=== PATIENT | female | born 1965 | race Caucasian/White ===

== ENCOUNTER 2016-05-06 19:51 | Emergency (ER) | payer BC ==
--- NOTE | 2016-05-06 19:59 | PDOC ---
[id number] [id number] - General Chief Complaint: Palpitations Stated Complaint: PALPITATIONS/COUGH Time Seen by Provider: 05/06/16 19:58 - History of Present Illness Initial Comments: 05/06/16 20:43 Patient is a 51 year old female with significant medical hx of hypothyroidism, HLD, and PFO who is presenting to the ED with dry cough, palpitations and chest pain. The patient reports experiencing heart palpitations during dinner this evening. The patient states she was feeling somewhat short of breath as well and decided to use a puff of her inhaler that she normally uses for exercise. The patient also is complaining of dry cough with associated chest tightness. She states that she's been feeling generally unwell the past few days with some weakness. She went to the ED at [facility] before coming here, where her heart rate was found to be at 130 BPM. Denies fever, chills, nausea, vomiting, diarrhea, diaphoresis, and lower extremity edema. Internal Medicine Nurse: Enrrique Aleman MD FHx: Father in 50s of heart disease (PaxtonAna) Past History <PaxtonAna - Last Filed: 05/06/16 21:02> - Past Medical History Anemia: Yes (pernicious anemia) Asthma: No Cancer: No Cardiac Disorders: Yes (heart murmur,hx palpitations, pfo) CVA: No COPD: No CHF: No Dementia: No Diabetes: No GI Disorders: No Disorders: No HTN: No Hypercholesterolemia: No Liver Disease: No Seizures: No Thyroid Disease: Yes - Surgical History Abdominal Surgery: No Appendectomy: No Cardiac Surgery: No Cholecystectomy: No Lung Surgery: No Neurologic Surgery: No Orthopedic Surgery: No - Reproductive History Cervical CA: No Dysfunctional Uterine Bleeding: No Ectopic : No Endometrial CA: No Polycystic Ovaries: No Tubal Ligation: No - Psycho/Social/Smoking Cessation Hx Anxiety: No Suicidal Ideation: No Smoking History: Never smoked Have you smoked in the past 12 months: No Number of Cigarettes Smoked Daily: 12 Hx Alcohol Use: No Drug/Substance Use Hx: No Substance Use Type: None Hx Substance Use Treatment: No <Pat Garcia - Last Filed: 05/07/16 06:43> - Past Medical History Allergies/Adverse Reactions: Allergies Allergy/AdvReac Type Severity Reaction Status Date / Time oxycodone Allergy Rash Verified 05/06/16 19:52 NUTS Allergy Intermediate Uncoded 05/06/16 19:52 Home Medications: Ambulatory Orders Aspirin [Aspirin EC] 81 mg PO HS 09/08/14 Hydrochlorothiazide [Hctz -] 12.5 mg PO DAILY 09/08/14 Levothyroxine [Synthroid -] 112 mcg PO DAILY 09/08/14 Metoprolol Succinate [Toprol Xl -] 25 mg PO HS 09/08/14 Metformin HCl [Metformin HCl ER] 1,000 mg PO DAILY 10/11/14 Cardiac Specific PMH - Complaint Specific PMHX Pacemaker: No <Pat Garcia - Last Filed: 05/07/16 06:43> Review of Systems <Ana Matta - Last Filed: 05/06/16 21:02> <Pat Garcia - Last Filed: 05/07/16 06:43> - Review of Systems Comments:: 05/06/16 20:51 CONSTITUTIONAL: Present: generalized weakness Absent: fever, chills, diaphoresis, malaise, loss of appetite HEENT: Absent: rhinorrhea, nasal congestion, throat pain, throat swelling, difficulty swallowing, mouth swelling, ear pain, eye pain, visual changes CARDIOVASCULAR: Present: chest tightness, palpitations Absent: syncope, irregular heart rate, lightheadedness, peripheral edema RESPIRATORY: Present: dry cough, shortness of breath Absent: dyspnea with exertion, orthopnea, wheezing, stridor, hemoptysis GASTROINTESTINAL: Absent: abdominal pain, abdominal distension, nausea, vomiting, diarrhea, constipation, melena, hematochezia GENITOURINARY: Absent: dysuria, frequency, urgency, hesitancy, hematuria, flank pain, genital pain MUSCULOSKELETAL: Absent: myalgia, arthralgia, joint swelling SKIN: Absent: rash, itching, pallor HEMATOLOGIC/IMMUNOLOGIC: Absent: easy bleeding, easy bruising, lymphadenopathy, frequent infections ENDOCRINE: Absent: unexplained weight gain, unexplained weight loss, heat intolerance, cold intolerance NEUROLOGIC: Absent: headache, focal weakness or paresthesia, dizziness, unsteady gait, seizure, mental status changes, bladder or bowel incontinence. PSYCHIATRIC: Absent: anxiety, depression, suicidal or homicidal ideation, hallucinations (Ana Matta) *Physical Exam <Ana Matta - Last Filed: 05/06/16 21:02> <Pat Garcia - Last Filed: 05/07/16 06:43> - Vital Signs Last Vital Signs Temp Pulse Resp BP Pulse Ox 97.9 F 90 16 118/73 100 05/06/16 20:01 05/06/16 20:01 05/06/16 20:01 05/06/16 20:01 05/06/16 20:01 - Physical Exam Comments: 05/06/16 20:52 GENERAL: The patient is awake, alert, and fully oriented, in no acute distress. HEAD: Normal with no signs of trauma. EYES: Pupils equal, round and reactive to light, extraocular movements intact, sclera anicteric, conjunctiva clear with no pallor. ENT: Ears normal, nares patent, oropharynx clear without exudates. Moist mucous membranes. NECK: Normal range of motion, supple without lymphadenopathy, JVD, or masses. LUNGS: Breath sounds equal, clear to auscultation bilaterally. No wheeze/ crackles. HEART: Regular rate and rhythm, normal S1 and S2 without murmur or rub. ABDOMEN: Soft/nontender/nondistended. BS wnl. No guarding or rebound. No palpable masses. No hepatosplenomegaly. EXTREMITIES: Normal range of motion, no edema. No clubbing or cyanosis. No cords, erythema, or tenderness. NEUROLOGICAL: Cranial nerves II through XII grossly intact. Normal speech, normal gait. PSYCH: Normal mood, normal affect. SKIN: Warm, Dry, normal turgor, no rashes or lesions noted. (Ana Matta) Heart Score/ECG Review <Ana Matta - Last Filed: 05/06/16 21:02> <Pat Garcia - Last Filed: 05/07/16 06:43> #1 05/06/16 20:55 Normal sinus rhythm at [address] abnormality Abnormal ECG (Ana Matta) ED Treatment Course - LABORATORY CBC & Chemistry Diagram: 05/06/16 20:50 05/06/16 20:50 <Ana Matta - Last Filed: 05/06/16 21:02> - LABORATORY CBC & Chemistry Diagram: 05/06/16 20:50 05/06/16 20:50 <Pat Garcia - Last Filed: 05/07/16 06:43> - ADDITIONAL ORDERS Additional order review: Laboratory Results 05/06/16 05/06/16 05/06/16 20:50 20:50 20:40 Sodium 134 L Potassium 3.4 L Chloride 107 Carbon Dioxide 25 Anion Gap 2 L BUN 10 Creatinine 0.6 Creat Clearance w eGFR > 60 Random Glucose 124 H Calcium 8.9 Total Bilirubin 0.3 D AST 22 ALT 17 Alkaline Phosphatase 61 Creatine Kinase 79 Troponin I < 0.03 L Total Protein 7.1 Albumin 4.3 Urine Color Yellow Urine Appearance Clear Urine pH 5.0 D Ur Specific [place] 1.015 Urine Protein Negative Urine Glucose (UA) Negative Urine Ketones Negative Urine Blood Trace-intact Urine Nitrite Negative Urine Bilirubin Negative Urine Urobilinogen 0.2 e.u/dl Ur Leukocyte Esterase Negative 05/06/16 20:50 RBC 4.77 MCV 84.6 MCHC 32.6 RDW 12.2 MPV 8.7 Neutrophils % 82.1 D Lymphocytes % 13.2 D Monocytes % 3.3 L Eosinophils % 0.8 D Basophils % 0.6 - Medications Given in the ED: ED Medications Discontinued Medications Generic Name Dose Route Start Last Admin Trade Name Freq PRN Reason Stop Dose Admin Potassium Chloride 20 meq 05/06/16 21:35 05/06/16 21:38 K-Dur - PO 05/06/16 21:36 20 meq ONCE ONE Administration Progress Note <Ana Matta - Last Filed: 05/06/16 21:02> <Pat Garcia - Last Filed: 05/07/16 06:43> - Progress Note Progress Note: Documentation has been prepared under my direction and personally reviewed by me in its entirety. I attest that this documented accurately reflects all work, treatment, procedures and medical decision making performed by me. (Pat Garcia) Medical Decision Making <Ana Matta - Last Filed: 05/06/16 21:02> <Pat Garcia - Last Filed: 05/07/16 06:43> - Medical Decision Making As noted above, this 51-year-old woman presents with an episode of this sensation of palpitations a few hours prior to presentation. She describes the sensation as being a rapid heartbeat; states that she cannot tell whether the heartbeat is irregular. She no longer had the sensation of palpitations when she arrived in the ER. No other associated symptoms during the episode. She has had a mild nonproductive cough and some mild constitutional symptoms for the last few days (subjective fever; mild weakness). Exam, as noted, shows no abnormality. 12-lead electrocardiogram shows normal sinus rhythm at 81 bpm; no ST or T-wave abnormalities evident. Cedar, intervals and wave forms are normal. There is no previous EKG tracing available for comparison. Because the patient has risk factors for coronary artery disease(borderline hypertension, hyperlipidemia, family history of coronary artery disease) cardiac enzymes as well as CBC and chemistry profile will be evaluated. Patient continued to be comfortable without palpitations or other symptoms while awaiting results of lab evaluation. CBC is normal; chemistry profile shows minimal hypokalemia(3.4 mEq per deciliter ) as well as minimal hyponatremia(134 mEq per deciliter). Remainder of the chemistry is essentially normal. Cardiac enzymes are not elevated. Results discussed with the patient. Since the dose of hydrochlorothiazide is so low (12.5 mg), and the patient takes the medication every other day, the patient suggested that she stop taking this until she sees her dumping machine operator ( Dr. Aleman) with whom she already has appointment scheduled within a week. This was agreed to. Meanwhile, the patient will have 20 milliequivalents of K-Dur now and continue to eat bananas/drink orange juice which she normally does while she is taking the hydrochlorothiazide. She should return to the ER if she has prolonged palpitations or experiences chest pain/shortness of breath. Furthermore, if her cough worsens or she has high fever, she should also return to the emergency room (Pat Garcia) *DC/Admit/Observation/Transfer <Ana Matta - Last Filed: 05/06/16 21:02> <Pat Garcia - Last Filed: 05/07/16 06:43> Diagnosis at time of Disposition: History of palpitations Acute bronchitis Qualifiers: Bronchitis organism: unspecified organism Qualified Code(s): J20.9 - Acute bronchitis, unspecified - Discharge Dispostion Disposition: HOME Condition at time of disposition: Stable - Referrals Referrals: Enrrique Aleman MD [Staff Physician] - - Patient Instructions Printed Discharge Instructions: DI for Palpitations Additional Instructions: hold hydrochlorothiazide as discussed continue other medications as prescribed return to ER if you have recurrent palpitations or shortness of breath return to ER if you develop fever/severe cough followup with Dr Aleman this week as scheduled - Attestations Scribe Attestion: 05/06/16 20:53 Documentation prepared by Ana Matta, acting as medical detailist for Pat Garcia MD. (Ana Matta)
[2016-05-06 20:05] VITALS: BP 118/73; PULSE 90; TEMP 97.9; BMI 27.4
[2016-05-06 20:52] LABS: URINE APPEARANCE Clear; URINE BILIRUBIN Negative (NEGATIVE); URINE BLOOD Trace-intact (NEGATIVE); URINE GLUCOSE (UA) Negative (NEGATIVE); URINE KETONE Negative (NEGATIVE); URINE LEUK ESTERASE Negative (NEGATIVE); URINE NITRITE Negative (NEGATIVE); URINE PROTEIN Negative (NEGATIVE); URINE UROBILINOGEN 0.2 E.U/dl (0.2-1.0)
[2016-05-06 20:58] LABS: URINE COLOR YELLOW
[2016-05-06 21:05] LABS: BASOPHIL 0.6 % (0-2.0); EOSINOPHIL 0.8 % (0-4.5); MCH 27.6 pg (25.7-33.7); MCHC 32.6 g/dl (32.0-36.0); MEAN CELL VOLUME 84.6 fl (80-96); MEAN PLT VOLUME 8.7 fl (7.5-11.1); NEUTROPHILS 82.1 % (42.8-82.8); PLATELET COUNT 239 K/MM3 (134-434); RDW 12.2 % (11.6-15.6); WHITE BLOOD COUNT 7.9 K/mm3 (4.0-10.0)
[2016-05-06 21:14] LABS: ALBUMIN 4.3 g/dl (3.5-5.0); ALK PHOS 61 U/L (32-92); ANION GAP 2 (8-16); BILIRUBIN,TOTAL 0.3 mg/dl (0.2-1.0); CALCIUM 8.9 mg/dl (8.4-10.2); CO2 25 mmol/L (22-28); CREATININE 0.6 mg/dl (0.6-1.3); GLUCOSE,RANDOM 124 mg/dl (74-106); SGOT/AST 22 U/L (10-42); SGPT/ALT 17 U/L (10-40); TOT PROT 7.1 g/dl (6.4-8.3)
[2016-05-06 21:15] LABS: CPK(DFH) 79 IU/L (26-140)
[2016-05-06 21:27] LABS: TROPONIN I (DFP) < 0.03 ng/ml (0.03-0.50)
[2016-05-06] MEDS ORDERED: POTASSIUM CHLORIDE TABS 20 MEQ TABLET.ER (FP) PO ONE ×2 (21:35)
--- NOTE | 2016-05-08 15:30 | EKG ---
Test Reason : Blood Pressure : / mmHG Vent. Rate : 081 BPM Atrial Rate : 081 BPM P-R Int : 138 ms QRS Dur : 088 ms QT Int : 380 ms P-R-T Axes : 053 045 041 degrees QTc Int : 441 ms NORMAL SINUS RHYTHM NONSPECIFIC ST ABNORMALITY ABNORMAL ECG WHEN COMPARED WITH ECG OF 06-MAY-2016 18:47, [place] INTERVAL HAS INCREASED NONSPECIFIC T WAVE ABNORMALITY NO LONGER EVIDENT IN LATERAL LEADS QT HAS SHORTENED Confirmed by LELE ALCANTARA, DESTINY ([id number]) on 05/08/2016 3:30:15 PM Referred By: CHA Confirmed By:DESTINY ROYAL MD
== END 2016-05-06 21:43 | disposition home or self-care (01) ==
LOC: FER 19:51
DX: J20.9 Acute bronchitis, unspecified (principal); R00.2 Palpitations; D51.0 Vitamin B12 deficiency anemia due to intrinsic factor deficiency; R01.1 Cardiac murmur, unspecified; E07.9 Disorder of thyroid, unspecified; F17.210 Nicotine dependence, cigarettes, uncomplicated
CPT/HCPCS: 36415; 80053; 81003; 82550; 84484; 85025; 93005; 99282-25

== ENCOUNTER 2016-08-12 10:00 | Emergency (ER) | payer BC ==
[2016-08-12 10:13] VITALS: BMI 27.4
[2016-08-12] MEDS ORDERED: KETOROLAC TROMETHAMINE 30 MG/1 ML VIAL IVPUSH ONE (10:33)
[2016-08-12] MEDS ORDERED: ONDANSETRON 4 MG/2 ML VIAL IVPB ONE (10:33)
--- NOTE | 2016-08-12 10:35 | PDOC ---
History of Present Illness - General History Source: Patient Exam Limitations: No Limitations - History of Present Illness Initial Comments: 08/12/16 11:35 The patient is a 51 year old female, with a significant past medical history of kidney stones and hypothyroidism, who presents to the emergency department with flank pain. She describes her flank pain as localized in the right side, ranging from mild to moderate, without radiation or modifying factors. She states that this pain is similar to her previous kidney stone pain. The patient also reports burning upon urination associated with her chief complaints. The patient saw her urologist Dr. Mora today, who reported that she had right sided hydropnephrosis and sent her for evaluation of renal colic. The patient denies chest pain, shortness of breath, headache and dizziness. Denies fever, chills, vomit, diarrhea and constipation. Denies frequency, urgency and hematuria. Allergies: None Past surgical history: None reported Social history: No alcohol, tobacco or drug use reported PMD - Dr. Mauro Narvaez Urologist - Dr. Mora <Michi Brown - Last Filed: 08/12/16 12:26> - General History Source: Patient Exam Limitations: No Limitations <Luis Wilder - Last Filed: 08/12/16 14:47> - General Chief Complaint: Pain, Acute Stated Complaint: FLANK PAIN,HX OF KIDNEY STONES. Time Seen by Provider: 08/12/16 10:15 Past History <Michi Brown - Last Filed: 08/12/16 12:26> - Past Medical History Anemia: Yes (pernicious anemia) Asthma: No Cancer: No Cardiac Disorders: Yes (heart murmur,hx palpitations, pfo) CVA: No COPD: No CHF: No Dementia: No Diabetes: No GI Disorders: No Disorders: No HTN: No Hypercholesterolemia: No Kidney Stones: Yes (X1) Liver Disease: No Seizures: No Thyroid Disease: Yes - Surgical History Abdominal Surgery: No Appendectomy: No Cardiac Surgery: No Cholecystectomy: No Lung Surgery: No Neurologic Surgery: No Orthopedic Surgery: No - Reproductive History Cervical CA: No Dysfunctional Uterine Bleeding: No Ectopic : No Endometrial CA: No Polycystic Ovaries: No Tubal Ligation: No - Psycho/Social/Smoking Cessation Hx Anxiety: No Suicidal Ideation: No Smoking History: Never smoked Have you smoked in the past 12 months: No Number of Cigarettes Smoked Daily: 12 Hx Alcohol Use: No Drug/Substance Use Hx: No Substance Use Type: None Hx Substance Use Treatment: No <Luis Wilder - Last Filed: 08/12/16 14:47> - Past Medical History Allergies/Adverse Reactions: Allergies Allergy/AdvReac Type Severity Reaction Status Date / Time oxycodone Allergy Rash Verified 08/12/16 10:10 NUTS Allergy Intermediate Uncoded 08/12/16 10:10 Home Medications: Ambulatory Orders Aspirin [Aspirin EC] 81 mg PO HS 09/08/14 Hydrochlorothiazide [Hctz -] 12.5 mg PO PRN 09/08/14 Levothyroxine [Synthroid -] 112 mcg PO DAILY 09/08/14 Metoprolol Succinate [Toprol Xl -] 25 mg PO HS 09/08/14 Metformin HCl [Metformin HCl ER] 1,000 mg PO DAILY 10/11/14 Diphenhydramine HCl [Benadryl -] 25 mg PO Q6H PRN #28 capsule 08/12/16 Estrogen,Con/M-Progest Acet [Prempro 0.625-2.5 mg Tablet] 1 each PO HS 08/12/16 Hydrocodone/Acetaminophen [Vicodin 5-300 mg Tablet] 1 each PO Q6H PRN #15 tablet MDD 4 08/12/16 Montelukast Na [Singulair -] 10 mg PO HS 08/12/16 Pantoprazole Sodium [Protonix] 40 mg PO DAILY 08/12/16 Tamsulosin HCl [Flomax] 0.4 mg PO DAILY #14 cap.er.24h 08/12/16 Review of Systems - Review of Systems Able to Perform ROS?: Yes Comments:: 08/12/16 11:32 GENERAL/CONSTITUTIONAL: No fever or chills. No weakness. HEAD, EYES, EARS, NOSE AND THROAT: No change in vision. No ear pain or discharge. No sore throat. CARDIOVASCULAR: No chest pain or shortness of breath RESPIRATORY: No cough, wheezing, or hemoptysis. GASTROINTESTINAL: +Nausea. No vomiting, diarrhea or constipation. GENITOURINARY: +Right sided flank pain and dysuria. No frequency, or change in urination. MUSCULOSKELETAL: No joint or muscle swelling or pain. No neck or back pain. SKIN: No rash NEUROLOGIC: No headache, vertigo, loss of consciousness, or change in strength/ sensation. ENDOCRINE: No increased thirst. No abnormal weight change HEMATOLOGIC/LYMPHATIC: No anemia, easy bleeding, or history of blood clots. ALLERGIC/IMMUNOLOGIC: No hives or skin allergy. <Michi Brown - Last Filed: 08/12/16 12:26> *Physical Exam - Vital Signs Last Vital Signs Temp Pulse Resp BP Pulse Ox 98 F 81 16 147/88 99 08/12/16 10:10 08/12/16 10:10 08/12/16 10:10 08/12/16 10:10 08/12/16 10:10 - Physical Exam Comments: 08/12/16 11:32 GENERAL: (+) Uncomfortable appearing. Awake, alert, and fully oriented. HEAD: No signs of trauma, normocephalic, atraumatic EYES: PERRLA, EOMI, sclera anicteric, conjunctiva clear ENT: Auricles normal inspection, hearing grossly normal, nares patent, oropharynx clear without exudates. Moist mucosa NECK: Normal ROM, supple, no lymphadenopathy, JVD, or masses LUNGS: No distress, speaks full sentences, clear to auscultation bilaterally HEART: Regular rate and rhythm, normal S1 and S2, no murmurs, rubs or gallops, peripheral pulses normal and equal bilaterally. ABDOMEN: Soft, nontender, normoactive bowel sounds. No guarding, no rebound. No masses BACK: (+) Right sided CVA tenderness. EXTREMITIES: Normal inspection, Normal range of motion, no edema. No clubbing or cyanosis. NEUROLOGICAL: Cranial nerves II through XII grossly intact. Normal speech, normal gait, no focal sensorimotor deficits SKIN: Warm, Dry, normal turgor, no rashes or lesions noted. <StephanieMichiasya Mccoy - Last Filed: 08/12/16 12:26> - Vital Signs Last Vital Signs Temp Pulse Resp BP Pulse Ox 98 F 81 16 147/88 99 08/12/16 10:10 08/12/16 10:10 08/12/16 10:10 08/12/16 10:10 08/12/16 10:10 <Luis Wilder - Last Filed: 08/12/16 14:47> ED Treatment Course - LABORATORY CBC & Chemistry Diagram: 08/12/16 11:10 08/12/16 11:10 - RADIOLOGY Radiograph Interpretation: 08/12/16 12:26 CT abdomen and pelvis without contrast Reviewed by: Dr. Priyank Christianson Impression: 4 mm right ureterovesical junction calculus is seen with resultant hydronephrosis which is probably mild to moderate. Small nonobstructing bilateral renal calculi are visualized. - Medications Given in the ED: ED Medications Discontinued Medications Generic Name Dose Route Start Last Admin Trade Name Heidy PRN Reason Stop Dose Admin Ketorolac Tromethamine 30 mg 08/12/16 10:33 08/12/16 10:45 Toradol Injection - IVPUSH 08/12/16 10:34 30 mg ONCE ONE Administration Ondansetron HCl 4 mg 08/12/16 10:33 08/12/16 10:45 Zofran Injection IVPB 08/12/16 10:34 4 mg ONCE ONE Administration <Michi Brown - Last Filed: 08/12/16 12:26> - LABORATORY CBC & Chemistry Diagram: 08/12/16 11:10 08/12/16 11:10 - RADIOLOGY Radiology Studies Ordered: Category Date Time Status SPIRAL- RENAL-STONE CT [CT] Stat CT Scan 08/12/16 10:33 Ordered <Luis Wilder - Last Filed: 08/12/16 14:47> Medical Decision Making - Medical Decision Making 08/12/16 10:51 A portion of this note was documented by scribe services under my direction. I have reviewed the details of the note, within reason, and agree with the documentation with the following case summary and management plan written by me. Patient treated in the ED. Nursing notes are reviewed and incorporated into the medical decision-making. Vital signs reviewed. Peripheral IV access obtained by the nurse, laboratory studies are drawn and sent, reviewed and interpreted by myself. Vital Signs Temp Pulse Resp BP Pulse Ox 98 F 81 16 147/88 99 08/12/16 10:10 08/12/16 10:10 08/12/16 10:10 08/12/16 10:10 08/12/16 10:10 51 year old female with past medical history of kidney stones, hypothyroidism p/ w R flank pain. Overnight, pt developed R flank pain like her previous kidney stones. Stated that pain is colicky and constant. Has nausea but no vomiting. Reports dysuria but denies fevers. Pt went and saw Dr. Mora today and noted R sided hydronephrosis and sent pt to ED for renal colic management. I agree with plan. Spiral CT. Labs, UA. Pt declines narcotics. Will give toradol , zofran and reassess. 08/12/16 14:40 CT reviewed. 4 mm right UVJ stone with resultant hydronephrosis which is probably mild to moderate. CBC, BMP 08/12/16 11:10 08/12/16 11:10 CMP Sodium 141 mmol/L (136-145) 08/12/16 11:10 Potassium 4.1 mmol/L (3.5-5.1) 08/12/16 11:10 Chloride 106 mmol/L (98-107) 08/12/16 11:10 Carbon Dioxide 25 mmol/L (21-32) 08/12/16 11:10 Anion Gap 10 (8-16) 08/12/16 11:10 BUN 14 mg/dL (7-18) 08/12/16 11:10 Creatinine 0.6 mg/dL (0.55-1.02) 08/12/16 11:10 Creat Clearance w eGFR > 60 (>60) 08/12/16 11:10 Random Glucose 98 mg/dL (74-106) 08/12/16 11:10 Calcium 8.9 mg/dL (8.5-10.1) 08/12/16 11:10 Total Bilirubin 0.5 mg/dL (0.2-1.0) 08/12/16 11:10 AST 18 U/L (15-37) D 08/12/16 11:10 ALT 25 U/L (12-78) 08/12/16 11:10 Alkaline Phosphatase 65 U/L (45-117) D 08/12/16 11:10 Total Protein 6.8 g/dl (6.4-8.2) 08/12/16 11:10 Albumin 3.8 g/dl (3.4-5.0) 08/12/16 11:10 Lipase 152 U/L (73-393) 08/12/16 11:10 Urine Test Results Urine Color Ltyellow 08/12/16 11:10 Urine Appearance Clear 08/12/16 11:10 Urine pH 6.0 (5.0-8.0) 08/12/16 11:10 Ur Specific [place] 1.020 (1.001-1.035) 08/12/16 11:10 Urine Protein Negative (NEGATIVE) 08/12/16 11:10 Urine Glucose (UA) Negative (NEGATIVE) 08/12/16 11:10 Urine Ketones Negative (NEGATIVE) 08/12/16 11:10 Urine Blood 3+ (NEGATIVE) H 08/12/16 11:10 Urine Nitrite Negative (NEGATIVE) 08/12/16 11:10 Urine Bilirubin Negative (NEGATIVE) 08/12/16 11:10 Ur Leukocyte Esterase Negative (NEGATIVE) 08/12/16 11:10 Urine RBC 190 /hpf (0-3) 08/12/16 11:10 Urine WBC 1 /hpf (3-5) 08/12/16 11:10 Urine Mucus Rare 08/12/16 11:10 The patient's pain is moderately improved. She would like to go home and try pain medications at home. Pt's here with family. Return precautions given if pain doesn't improve. Discharge diagnosis: renal colic I discussed the physical exam findings, ancillary test results and final diagnoses with the patient. I answered all of the patient's questions. The patient was satisfied with the care received and felt comfortable with the discharge plan and treatment plan. The patient will call their primary care physician within 24 hours to arrange follow-up and will return to the Emergency Department with any new, persistant or worsening symptoms. <Luis Wilder - Last Filed: 08/12/16 14:47> *DC/Admit/Observation/Transfer - Attestations Scribe Attestion: 08/12/16 11:32 Documentation prepared by Michi Brown, acting as nuclear medical technologist for Luis Wilder MD <Michi Brown - Last Filed: 08/12/16 12:26> - Discharge Dispostion Admit: No <Luis Wilder - Last Filed: 08/12/16 14:47> Diagnosis at time of Disposition: Renal colic - Discharge Dispostion Disposition: HOME Condition at time of disposition: Improved - Prescriptions Prescriptions: Diphenhydramine HCl [Benadryl -] 25 mg PO Q6H PRN #28 capsule PRN Reason: Itching Tamsulosin HCl [Flomax] 0.4 mg PO DAILY #14 cap.er.24h Hydrocodone/Acetaminophen [Vicodin 5-300 mg Tablet] 1 each PO Q6H PRN #15 tablet MDD 4 PRN Reason: Pain Level 6-10 - Referrals Referrals: Mauro Narvaez MD [Primary Care Provider] - Manuel Garza MD [Staff Physician] - - Patient Instructions Printed Discharge Instructions: Kidney Stones -- Adult Additional Instructions: Please take a vicodin with benadryl every 6 to 8 hours as prescribed. If you develop a severe reaction from the medication, please return to the ER. You have a 4 mm stone at the UVJ. Please call your urologist and schedule a follow up.
[2016-08-12] MEDS ORDERED: KETOROLAC TROMETHAMINE 30 MG/1 ML VIAL ONE (10:42)
[2016-08-12] MEDS ORDERED: ONDANSETRON 4 MG/2 ML VIAL ONE (10:42)
[2016-08-12 11:21] LABS: BASOPHIL 0.9 % (0-2.0); EOSINOPHIL 2.1 % (0-4.5); MCH 29.1 pg (25.7-33.7); MCHC 33.5 g/dl (32.0-36.0); MEAN CELL VOLUME 86.9 fl (80-96); MEAN PLT VOLUME 8.8 fl (7.5-11.1); NEUTROPHILS 72.2 % (42.8-82.8); PLATELET COUNT 220 K/MM3 (134-434); RDW 13.6 % (11.6-15.6); WHITE BLOOD COUNT 7.7 K/mm3 (4.0-10.0)
[2016-08-12 11:23] LABS: URINE APPEARANCE CLEAR; URINE BILIRUBIN NEGATIVE (NEGATIVE); URINE COLOR LTYELLOW; URINE GLUCOSE (UA) NEGATIVE (NEGATIVE); URINE KETONE NEGATIVE (NEGATIVE); URINE LEUK ESTERASE NEGATIVE (NEGATIVE); URINE NITRITE NEGATIVE (NEGATIVE); URINE PROTEIN NEGATIVE (NEGATIVE); URINE UROBILINOGEN NEGATIVE E.U./dl (0.2-1.0)
[2016-08-12 11:29] LABS: URINE BLOOD 3+ (NEGATIVE)
[2016-08-12 11:33] LABS: URINE MUCUS RARE; URINE RBC 190 /hpf (0-3); URINE WBC 1 /hpf (3-5)
[2016-08-12 11:50] LABS: ALBUMIN 3.8 g/dl (3.4-5.0); ANION GAP 10 (8-16); BILIRUBIN,TOTAL 0.5 mg/dL (0.2-1.0); CALCIUM 8.9 mg/dL (8.5-10.1); CO2 25 mmol/L (21-32); CREATININE 0.6 mg/dL (0.55-1.02); GLUCOSE,RANDOM 98 mg/dL (74-106); SGOT/AST 18 U/L (15-37); SGPT/ALT 25 U/L (12-78); TOT PROT 6.8 g/dl (6.4-8.2)
[2016-08-12 11:51] LABS: ALK PHOS 65 U/L (45-117)
[2016-08-12] MEDS ORDERED: ACETAMINOPHEN INJECTION 100 ML IVPB ONE (12:05)
[2016-08-12] MEDS ORDERED: ACETAMINOPHEN 1000 MG/100 ML VIAL (NON FORMULARY) IVPB ONE (12:14)
[2016-08-12] MEDS ORDERED: METOCLOPRAMIDE HCL INJECTION 10 MG/2 ML VIAL IVPB ONE (12:25)
[2016-08-12] MEDS ORDERED: METOCLOPRAMIDE HCL INJECTION 10 MG/2 ML VIAL ONE (12:33)
[2016-08-12] MEDS ORDERED: morphine CARPU-JECT 4 MG/1 ML DISP.SYRIN IVPUSH ONE (12:41)
[2016-08-12] MEDS ORDERED: diphenhydrAMINE HCL 25 MG CAPSULE (FP) PO ONE ×2 (12:41→13:00)
[2016-08-12] MEDS ORDERED: morphine CARPU-JECT 4 MG/1 ML DISP.SYRIN ONE (13:00)
[2016-08-12 15:37] VITALS: BP 116/82; PULSE 62; TEMP 98
== END 2016-08-12 15:13 | disposition home or self-care (01) ==
LOC: JER 10:00
PROC: 3E033NZ Introduction of Analgesics, Hypnotics, Sedatives into Peripheral Vein, Percutaneous Approach (ICD-10-PCS; principal; 2016-08-12)
PROC: 3E0333Z Introduction of Anti-inflammatory into Peripheral Vein, Percutaneous Approach (ICD-10-PCS; 2016-08-12)
PROC: 3E033GC Introduction of Other Therapeutic Substance into Peripheral Vein, Percutaneous Approach (ICD-10-PCS; 2016-08-12)
PROC: 3E033GC Introduction of Other Therapeutic Substance into Peripheral Vein, Percutaneous Approach (ICD-10-PCS; 2016-08-12)
DX: N13.2 Hydronephrosis with renal and ureteral calculous obstruction (principal); Z87.442 Personal history of urinary calculi; E03.9 Hypothyroidism, unspecified
CPT/HCPCS: 36415; 74176; 80053; 81003; 81015; 83690; 85025; 87086; 99282-25

== ENCOUNTER 2024-06-02 05:29 | Day surgery (SDC) | payer BC ==
[2024-05-18 11:51] VITALS: BMI 26.4
[2024-06-02 08:45] VITALS: TEMP 98.1
[2024-06-02 09:35] VITALS: PULSE 67; RESP 18
[2024-06-02 09:37] VITALS: BP 122/79
== END 2024-06-02 09:47 | disposition home or self-care (01) ==
LOC: JASU-ENDO 05:29
PROVIDERS: ATTEND Internal Medicine Gastroenterology
PROC: 0DB98ZX Excision of Duodenum, Via Natural or Artificial Opening Endoscopic, Diagnostic (ICD-10-PCS; 2024-06-02)
PROC: 0DB68ZX Excision of Stomach, Via Natural or Artificial Opening Endoscopic, Diagnostic (ICD-10-PCS; 2024-06-02)
PROC: 0DB28ZX Excision of Middle Esophagus, Via Natural or Artificial Opening Endoscopic, Diagnostic (ICD-10-PCS; 2024-06-02)
PROC: 0DB48ZX Excision of Esophagogastric Junction, Via Natural or Artificial Opening Endoscopic, Diagnostic (ICD-10-PCS; 2024-06-02)
PROC: 0DBN8ZX Excision of Sigmoid Colon, Via Natural or Artificial Opening Endoscopic, Diagnostic (ICD-10-PCS; principal; 2024-06-02 08:00)
DX: Z12.11 Encounter for screening for malignant neoplasm of colon (principal); D12.5 Benign neoplasm of sigmoid colon; K57.30 Diverticulosis of large intestine without perforation or abscess without bleeding; K29.70 Gastritis, unspecified, without bleeding; K44.9 Diaphragmatic hernia without obstruction or gangrene
CPT/HCPCS: 82962; 88305-TC